=== PATIENT | female | born 2000 | race Hispanic/Latino ===

== ENCOUNTER 2022-11-01 13:17 | Outpatient (CLI) | payer OTHER | END 2022-11-01 13:18 | disposition home or self-care (01) | LOC: CSHULT 13:17 | PROVIDERS: ATTEND Family Medicine | DX: Z34.82 Encounter for supervision of other normal pregnancy, second trimester (principal); Z3A.18 18 weeks gestation of pregnancy | CPT/HCPCS: 76805 ==

== ENCOUNTER 2023-01-25 14:43 | Day surgery (SDC) | payer OTHER ==
[2023-01-25 15:08] VITALS: BMI 26.2
[2023-01-25] MEDS ORDERED: hydrALAZINE 20 MG/ML VIAL SLOW IVP PRN (15:34)
[2023-01-25] MEDS ORDERED: Lactated Ringer's 1,000 ML IV SCH (15:45)
== END 2023-01-25 17:02 | disposition home or self-care (01) ==
LOC: CSHLD/OP 14:43
PROVIDERS: ATTEND Family Medicine
DX: O26.893 Other specified pregnancy related conditions, third trimester (principal); R10.9 Unspecified abdominal pain; O44.03 Complete placenta previa NOS or without hemorrhage, third trimester; O36.8130 Decreased fetal movements, third trimester, not applicable or unspecified; Z3A.31 31 weeks gestation of pregnancy
CPT/HCPCS: 76819; 96360; 99282

== ENCOUNTER 2023-03-12 20:35 | Inpatient (IN) | payer OTHER ==
[~2023-03-12 20:35] MED LIST: Bupivacaine 0.25% HCL 30 ML VIAL ONE; ePHEDrine Sulfate 50 MG/10 ML VIAL ONE
[2023-03-12] MEDS ORDERED: Promethazine HCl 25 MG/ML VIAL IM PRN (20:38)
[2023-03-12] MEDS ORDERED: fentaNYL 50 mcg/mL 1 mL Vial SLOW IVP PRN (20:38)
[2023-03-12] MEDS ORDERED: Lactated Ringer's 1,000 ML IV SCH (20:38)
[2023-03-12] MEDS ORDERED: HYDROcodone/Acetaminophen 5/325 mg Tablet PO PRN (20:38)
[2023-03-12] MEDS ORDERED: Methylergonovine 0.2 MG/ML VIAL IM PRN (20:38)
[2023-03-12] MEDS ORDERED: Carboprost 250 MCG/ML AMP IM PRN (20:38)
[2023-03-12] MEDS ORDERED: Ibuprofen 800 MG TAB PO PRN (20:38)
[2023-03-12] MEDS ORDERED: Ondansetron PF 4 MG/2 ML Vial IVP PRN (20:38)
[2023-03-12] MEDS ORDERED: Diphenoxylate HCl/Atropine Tablet PO PRN (20:38)
[2023-03-12] MEDS ORDERED: hydrALAZINE 20 MG/ML VIAL SLOW IVP PRN (20:38)
[2023-03-12] MEDS ORDERED: Oxytocin 30 units/NS 500 ML 500 ML IV SCH ×3 (20:38)
[2023-03-12] MEDS ORDERED: Misoprostol 200 MCG TAB PR PRN (20:38)
[2023-03-12] MEDS ORDERED: Lidocaine 1% (PF) 30 ML VIAL SC PRN (20:38)
[2023-03-12] MEDS ORDERED: Tranexamic Acid 1,000 MG/10 ML VIAL IVP PRN (20:38)
[2023-03-12] MEDS ORDERED: Acetaminophen 500 MG TAB PO PRN (20:38)
[2023-03-12 21:00] VITALS: BMI 28.0
[2023-03-12] MEDS: Misoprostol 100 MCG TAB VAG SCH (21:49)
[2023-03-12 21:58] LABS: Hematocrit 28.7 % (34.9-44.5); Mean Corpuscular HGB CONC 31.4 g/dL (32.0-36.0); Mean Corpuscular Hemoglobin 22.8 pg (27.0-33.0); Mean Corpuscular Volume 72.8 fl (81.6-98.3); Mean Platelet Volume 10.4 fl (7.4-10.4); Platelet Count 367 10x3/uL (150-450); RBC Distribution Width 14.7 % (11.5-14.5); Red Blood Cell (RBC) Count 3.94 10x6/uL (3.90-5.03); White Blood Cell (WBC) Count 9.2 10x3/uL (3.5-10.5)
[2023-03-12 22:21] LABS: HBSAg Index 0.17 S/CO (0-0.99); Hep B Surf Ag - L&D Non-Reactive S/CO (NonReactive)
[2023-03-13 01:06] LABS: Syphilis Antibody Nonreactive (Nonreactive); Syphilis Antibody Index 0.09 S/CO (<1.00 Non-Reactive)
[2023-03-13] MEDS ORDERED: fentaNYL/Ropivacaine Epidural 100 ML ONE (04:43)
[2023-03-13] MEDS ORDERED: ePHEDrine Sulfate 50 MG/10 ML VIAL SLOW IVP PRN (05:32)
[2023-03-13] MEDS ORDERED: Promethazine HCl 25 MG/ML VIAL IM PRN ×2 (05:32→13:40)
[2023-03-13] MEDS ORDERED: Lactated Ringer's 500 ML IV PRN (05:32)
[2023-03-13] MEDS ORDERED: Naloxone HCl 0.4 mg/ml Vial IVP PRN ×2 (05:32)
[2023-03-13] MEDS ORDERED: Ondansetron PF 4 MG/2 ML Vial IVP PRN ×2 (05:32→13:40)
[2023-03-13] MEDS ORDERED: Moisturizing Cream (Eucerin) 113 GM JAR TOP PRN (05:32)
[2023-03-13] MEDS ORDERED: diphenhydrAMINE 50 MG/ML VIAL IVP PRN (05:32)
[2023-03-13] MEDS ORDERED: Acetaminophen 325 MG TAB PO PRN (05:32)
[2023-03-13] MEDS ORDERED: Communication Order-Pharmacy FS SCH (05:45)
[2023-03-13] MEDS ORDERED: fentaNYL 2 mcg/Ropivacaine 0.2% Epidural 100 ML CADD EPIDURAL SCH ×2 (05:45)
[2023-03-13] MEDS ORDERED: Benzocaine-Menthol 82.5 ML CAN TOP PRN (13:40)
[2023-03-13] MEDS ORDERED: hydrALAZINE 20 MG/ML VIAL SLOW IVP PRN (13:40)
[2023-03-13] MEDS ORDERED: Milk Of Magnesia 30 ML UDCUP PO PRN (13:40)
[2023-03-13] MEDS ORDERED: Bisacodyl 10 MG SUPP PR PRN (13:40)
[2023-03-13] MEDS ORDERED: Lanolin Ointment 7 GM TUBE TOP PRN (13:40)
[2023-03-13] MEDS ORDERED: Boostrix 0.5 ML (Tdap) VIAL (>/=7 yrs of age) IM ONE (13:40)
[2023-03-13] MEDS ORDERED: diphenhydrAMINE 25 MG CAP PO PRN (13:40)
[2023-03-13] MEDS: Ibuprofen 800 MG TAB PO SCH ×2 (13:59→20:36)
[2023-03-13] MEDS: HYDROcodone/Acetaminophen 5/325 mg Tablet PO PRN ×2 (13:59→20:37)
[2023-03-13] MEDS: Misoprostol 100 MCG TAB VAG SCH (18:36)
[2023-03-13] MEDS: Ferrous Sulfate 325 MG TAB PO SCH (18:38)
[2023-03-13] MEDS: Docusate 100 MG CAP PO SCH (20:36)
[2023-03-14] MEDS: HYDROcodone/Acetaminophen 5/325 mg Tablet PO PRN (03:50)
[2023-03-14] MEDS: Ibuprofen 800 MG TAB PO SCH ×3 (05:34→21:12)
[2023-03-14] MEDS: Prenatal Vitamin 1 TAB PO SCH (09:24)
[2023-03-14] MEDS: Docusate 100 MG CAP PO SCH ×2 (09:24→21:12)
[2023-03-14] MEDS: Ferrous Sulfate 325 MG TAB PO SCH ×2 (09:24→17:33)
[2023-03-15] MEDS: HYDROcodone/Acetaminophen 5/325 mg Tablet PO PRN ×2 (04:25→11:50)
[2023-03-15] MEDS: Ibuprofen 800 MG TAB PO SCH (05:31)
[2023-03-15 08:13] VITALS: BP 102/57; TEMP 98.6
[2023-03-15] MEDS: Ferrous Sulfate 325 MG TAB PO SCH (08:21)
[2023-03-15] MEDS: Docusate 100 MG CAP PO SCH (08:21)
[2023-03-15] MEDS: Prenatal Vitamin 1 TAB PO SCH (08:21)
== END 2023-03-15 11:50 | disposition home or self-care (01) | DRG 807 ==
LOC: CSHLD 20:35 → CSHPED 03-13 13:20
PROVIDERS: ADMIT Family Medicine; ATTEND Family Medicine
PROC: 10E0XZZ Delivery of Products of Conception, External Approach (ICD-10-PCS; principal; 2023-03-13)
PROC: 10907ZC Drainage of Amniotic Fluid, Therapeutic from Products of Conception, Via Natural or Artificial Opening (ICD-10-PCS; 2023-03-13)
DX: O36.5930 Maternal care for other known or suspected poor fetal growth, third trimester, not applicable or unspecified (principal); Z37.0 Single live birth; Z3A.38 38 weeks gestation of pregnancy
CPT/HCPCS: 36415; 51702; 85027; 86780; 86850; 86900; 86901; 87340; J2405; J2590; S0020